=== PATIENT | female | born 2000 | race Caucasian/White ===

== ENCOUNTER 2024-05-16 09:56 | Emergency (ER) | payer BC, SELFPAY ==
[2024-05-16] VITALS (8 sets, daily range): BP systolic 107–136; BP diastolic 72–96; PULSE 61–92; RESP 18–19; TEMP 36.6–36.7; O2SAT 97–100; BMI 19.7
[2024-05-16] MEDS: 0.9 % SODIUM CHLORIDE 1000ML 1,000 ML 999 ML IV (10:13)
[2024-05-16] MEDS: ACETAMINOPHEN 500MG TAB 1000 MG PO (10:13)
[2024-05-16] MEDS: ONDANSETRON 4MG/2ML VIAL 4 MG IV (10:13)
[2024-05-16] MEDS: MORPHINE 4MG/ML SYRINGE 4 MG IV (10:13)
[2024-05-16 10:14] LABS: Microscopic, Urine URINE MICROSCOPIC (MICROSCOPIC)
[2024-05-16 10:15] LABS: Appearance,Urine CLEAR (Clear); Bilirubin,Urine Negative (Negative); Blood, Urine TRACE-I (Negative); Color,Urine YELLOW (Yellow); Glucose,Urine (UA) Negative (Negative); Ketones,Urine 2+ (Negative); Leukocyte Esterase,Urine Negative (Negative); Nitrate,Urine Negative (Negative); Protein,Urine 1+ (Negative); Specific Gravity, Urine >= 1.030 (1.005-1.030); Urobilinogen,Urine 0.2 EU/dl (0.2)
--- NOTE | 2024-05-16 10:20 | ED_ITS ---
Discharge Plan Disposition Patient Disposition: Home, Self-Care Prescriptions Prescriptions: New ondansetron 4 mg tablet,disintegrating 4 mg PO Q6H PRN (Reason: nausea and vomiting) Qty: 10 0RF promethazine 25 mg tablet 25 mg PO Q6H PRN (Reason: nausea and vomiting) Qty: 20 0RF Referrals Follow up/Referrals: Joao Brewer II, MD [Staff Physician] - See instructions Activity Restrictions/Add. Instructions Additional Instructions/Restrictions: Call your family doctor to establish care for this visit to the emergency department and schedule follow-up within 48 hours to ensure improvement. If you have any worsening of your condition or any other concerning signs or symptoms, return to the emergency department or your primary care doctor for further evaluation. Take Tylenol 1000 mg every 6 hours (4 times daily) and ibuprofen 400 mg every 6 hours (4 times daily) as needed with food and water to prevent GI upset and kidney damage. Refraining from THC use can significantly improve your symptoms. Talk to your family doctor regarding follow-up and need for repeat labs to make sure potassium returns to normal. If you are feeling nauseated or having cramping abdominal pain, take promethazine orally. If you are actively vomiting, place Zofran (ondansetron) underneath your tongue to let it dissolve. Do not take them at the same time. You can take 1 or the other every 6 hours as needed for nausea and vomiting. If you continue having symptoms, Dr. Brewer's information is here, he has a staff development manager that can further manage your symptoms. Clinical Impressions Clinical Impression: Abdominal pain, Vomiting, Acute hypokalemia Instructions Patient Instructions: DI for Acute Abdominal Pain Print Language Print Language: Divehi Discharge ED Provider: Geovanny Mcbride General Adult HPI General Chief complaint: Abdominal Pain Stated complaint: abd pain, vomiting Time Seen by Provider: 05/16/24 10:04 Mode of Arrival: Family Vehicle Source of Information: Patient and Significant Other Limitations: No Limitations Description of Symptoms (Recalled from ER Triage Doc. by RN): Pt c/o periumbilical- LLQ ABD pain that is tender and has bruising to the area that began 5 days ago. States the pain was initally dull ache and has progressed to be severe today. She has not kept anything significant down in 5 days. Reports n/v and states emesis is green stomach acid . No previous ABD surgery. LPM was 1 wk ago. Last BM was over 5 days ago. She denies any hx of constipation. History of Present Illness HPI narrative: Please note that above description of symptoms, in this electronic medical record under categorization of recalled from ER triage doctor by RN are reflective of an initial nursing assessment, however, is not reflective of my full history and physical exam that was personally taken and clarified. Consequentially, this preceding description of symptoms, which may include the patient's categorized chief complaint in the EMR, do not reflect my personal clinical impression, and the ultimate description of history of present illness and patient stated complaints should be deferred to this section of the note. Unless stated otherwise or congruent with this section of the note, additional signs, symptoms, or incongruence should be interpreted as inaccurate with my clinical impression. Related Data Previous Rx's ?Medication ?Instructions ?Recorded ondansetron 4 mg disintegrating 4 mg PO Q6H PRN nausea and 05/16/24 tablet vomiting #10 tabs promethazine 25 mg tablet 25 mg PO Q6H PRN nausea and 05/16/24 vomiting #20 tabs Allergies Allergy/AdvReac Type Severity Reaction Status Date / Time No Known Allergies Allergy Verified 05/16/24 10:11 [facility] Disclaimer: The information contained in this section may have been updated after the patient was seen, as this information can be updated by other users. Social History Smoking Status: Former smoker alcohol intake: never current occupational status: employed Travel in the last 8 weeks: None ROS Obtained: Yes All systems reviewed & no additional complaints except as documented Physical Exam General General appearance: alert Head Head exam: atraumatic and normocephalic Eye Eye exam: Present normal appearance, PERRL and EOMI ENT ENT exam: Present mucous membranes dry Neck Neck exam: Present normal inspection, full ROM and trachea midline Respiratory Respiratory exam: Absent respiratory distress, wheezes, stridor, accessory muscle use or prolonged expiratory phase Cardiovascular Cardiovascular exam: Present regular rate, normal rhythm and other (Pulses equal symmetric in upper and lower extremities) Abdominal Exam Abdominal exam: Present soft, tenderness and guarding; Absent distention, rebound, rigidity or pulsatile mass Abdominal tenderness: Present epigastrium and diffuse Comment: Mottling of periumbilical abdominal soft tissues Extremities Exam Extremities exam: Absent edema Neurological Exam Neurological exam: Present alert, oriented X3 and CN II-XII intact; Absent motor sensory deficit Skin Skin exam: Present warm and dry; Absent diaphoresis or erythema Medical Decision Making Medical Records Medical records reviewed: Yes I reviewed the patient's medical records. Screening: Per USPSTF and CDC recommendations, given the prevalence of disease in our region, it is our hospital?s policy to screen for HIV and viral Hepatitis for all patients aged 18 and over and those with ongoing risk factors. Danny Inquiry Pt receiving controlled substance: No Danny was queried for this patient: No Vital Signs: 05/16/24 09:57 05/16/24 11:00 05/16/24 11:31 Temperature 98.1 F Temperature Source Oral Pulse Rate 65 65 Pulse Rate [Right] 92 H Respiratory Rate 19 Blood Pressure 128/93 H 116/84 Blood Pressure [Right Arm] 136/96 H Blood Pressure Mean [Right Arm] 109 Blood Pressure Source [Right Arm] Automatic Cuff 02 Sat by Pulse Oximetry 99 100 97 Oxygen Delivery Method Room Air 05/16/24 12:00 05/16/24 12:32 05/16/24 12:48 Temperature Temperature Source Pulse Rate 74 70 70 Pulse Rate [Right] Respiratory Rate Blood Pressure 107/72 L 113/94 H 113/94 H Blood Pressure [Right Arm] Blood Pressure Mean [Right Arm] Blood Pressure Source [Right Arm] 02 Sat by Pulse Oximetry 97 98 98 Oxygen Delivery Method Room Air 05/16/24 13:00 Temperature Temperature Source Pulse Rate 61 Pulse Rate [Right] Respiratory Rate Blood Pressure 125/92 H Blood Pressure [Right Arm] Blood Pressure Mean [Right Arm] Blood Pressure Source [Right Arm] 02 Sat by Pulse Oximetry 98 Oxygen Delivery Method Lab Data Lab Results 05/16/24 10:03: Urine Color Yellow, Urine Appearance Clear, Urine pH 6.0, Ur Specific [place] >= 1.030, Urine Protein 1+ A, Urine Glucose (UA) Negative, Urine Ketones 2+, Urine Blood Trace-i, Urine Nitrate Negative, Urine Bilirubin Negative, Urine Urobilinogen 0.2, Ur Leukocyte Esterase Negative, Urine RBC Occasional, Urine WBC Occasional, Ur Squamous Epith Cells 3-5, Urine Bacteria 2+, Urine Mucus 2+, Urine Opiates Screen Negative, Urine Methadone Screen Negative, Ur Barbituates Screen Negative, Ur Phencyclidine Scrn Negative, Ur Amphetamines Screen Negative, U Benzodiazepines Scrn Negative, Urine Cocaine Screen Negative, U Marijuana (THC) Screen Positive H 05/16/24 10:08: WBC 11.5 H, RBC 5.63 H, Hgb 17.4 H, Hct 47.9 H, MCV 85.1, MCH 31.0, MCHC 36.4 H, RDW 13.3, Plt Count 440 H, MPV 9.1, Neut % (Auto) 67.8, Lymph % (Auto) 23.2, [place] % (Auto) 8.4, Eos % (Auto) 0.2, Baso % (Auto) 0.5, Neut # (Auto) 7.8, Lymph # (Auto) 2.7, [place] # (Auto) 1.0, Eos # (Auto) 0.0, Baso # (Auto) 0.1, Sodium 128 L, Potassium 2.9 L*, Chloride 94 L, Carbon Dioxide 20 L, Anion Gap 16.9 H, BUN 17, Creatinine 0.90, Estimated Creat Clear 76, Estimated GFR 78, Est GFR ( Amer) 95, Glucose 85, Calcium 9.7, Total Bilirubin 1.9 H, AST 33, ALT 27, Alkaline Phosphatase 68, Total Protein 8.4 H, Albumin 5.3 H, Globulin 3.1, Albumin/Globulin Ratio 1.7, Lipase 99, HCG, Quant < 2, HIV 1&2 Antibody Rapid Nonreactive 05/16/24 10:08 05/16/24 10:08 Orders (Tests/Meds): ED MEDICATIONS Discontinued Medications Generic Name Dose Route Start Last Admin Trade Name Wilberq PRN Reason Stop Dose Admin Acetaminophen 1,000 mg 05/16/24 10:13 05/16/24 10:13 Acetaminophen 500mg Tab PO 05/16/24 10:14 1,000 mg ONCE ONE Administration Sodium Chloride 1,000 mls @ 999 mls/hr 05/16/24 10:08 05/16/24 10:13 Sod Chlor 0.9% 1000ml Bag IV 05/16/24 11:08 999 mls/hr .Q1H1M ONE Administration Potassium Chloride/Water 100 mls @ 100 mls/hr 05/16/24 10:40 05/16/24 11:49 Potassium Chloride 10meq/100ml Ivpb IV 05/16/24 12:39 100 mls/hr Q1H KEAGAN Administration Iopamidol 75 ml 05/16/24 12:28 05/16/24 12:28 Iopamidol-370 (76%);100ml Bottle IV 05/16/24 12:29 75 ml ONCE ONE Administration Ketorolac Tromethamine 15 mg 05/16/24 10:58 05/16/24 11:49 Ketorolac 30mg/Ml Vial IV 05/16/24 10:59 15 mg ONCE ONE Administration Morphine Sulfate 4 mg 05/16/24 10:13 05/16/24 10:13 Morphine 4mg/Ml Syringe IV 05/16/24 10:14 4 mg ONCE ONE Administration Ondansetron HCl 4 mg 05/16/24 10:08 05/16/24 10:13 Ondansetron 4mg/2ml Vial IV 05/16/24 10:09 4 mg ONCE ONE Administration Potassium Chloride 60 meq 05/16/24 10:40 05/16/24 11:49 Potassium Chloride 20meq Tab PO 05/16/24 10:41 60 meq ONCE ONE Administration Sodium Chloride 10 ml 05/16/24 12:28 05/16/24 12:28 Sodium Chloride 0.9% 10ml Syr (Rad Only) IV 05/16/24 12:29 10 ml ONCE ONE Administration ORDERS Category Date Time Status CT abdomen pelvis w con Stat Cat Scan 05/16/24 11:58 Completed CBC w/Auto Diff [Complete Blood Count Auto Diff] Stat Lab 05/16/24 10:08 Completed CMP [Comprehensive Metabolic Panel] Stat Lab 05/16/24 10:08 Completed HCG,Quantitative Stat Lab 05/16/24 10:08 Completed HIV (1&2) Antibody Rapid Stat Lab 05/16/24 10:08 Completed Hep C Ab with Reflex to RNA Stat Lab 05/16/24 10:08 Received Lipase Stat Lab 05/16/24 10:08 Completed UA [Urinalysis and Microscopic] Stat Lab 05/16/24 10:03 Completed UDS [Drug Screen,Urine] Stat Lab 05/16/24 10:03 Completed Urine Culture Stat Micro 05/16/24 10:03 Received Medical Decision Narrative: 24-year-old female no relevant medical history presenting with abdominal pain. Patient states that she has been vomiting for the past week or so on and off. Made worse with attempting oral or solid p.o. intake. Nonbloody, nonbilious vomit, associated with a couple episodes of loose stools, but no overt diarrhea. Patient states that for about 4 or 5 days she has had abdominal pain that is primarily epigastric, does not radiate, is now severe in nature and has been crescendo. Has not taken anything for the pain. No fevers or chills, chest pain, shortness of breath, other sick contacts, recent travel, or any other relevant history or concerns. Visitor in the room corroborating story and states that she has had very minimal meaningful p.o. intake for about 5 days stating that he is constantly pushing chicken broth and clears just to try to keep her hydrated. History was obtained via conversation with patient and visitor. On arrival, patient hemodynamically stable, alert, oriented x4, appropriate, GCS 15, moving all extremities spontaneously, pupils equal and reactive to light. Full physical exam performed and significant for fatigued appearing female who is in no acute distress. Speaking in full sentences. Smells of marijuana. Normotensive, nontachycardic. She is afebrile. Cardiopulmonary exam normal. Patient's abdomen is soft, nondistended, but mildly diffusely tender, but primarily tender in epigastrium with voluntary guarding. She also has what appears to be mottling of the skin and periumbilical tissues. No flank bruising, tenderness, or overlying skin changes. Differential includes cannabis hyperemesis, PUD, gastritis, enteritis, gastroenteritis, pancreatitis, SBO, colitis, diverticulitis, nephrolithiasis, UTI, , cholecystitis, choledocholithiasis, appendicitis, hepatitis, torsion, aortic pathology, mesenteric ischemia among others. Patient placed on continuous cardiac monitoring and continuous pulse ox with initial blood pressure 136/90, heart rate 92, saturation 99% on room air. Patient was given fluids, oral and IV potassium, Zofran, Toradol for symptomatic management and correction of underlying abnormalities. Workup independently interpreted and significant for hemoconcentration with hemoglobin 17.4, elevated white cell count 11.5, platelets elevated at 440. Patient's chemistry with mild hyponatremia 128, hypokalemia 2.9 and anion gap of 16.9 likely secondary to mild lactic acidosis. Lipase negative, hCG negative. Patient's urinalysis unremarkable. UDS positive for THC. On reevaluation, patient states she is still in pain, however she is laying on her side and sleeping comfortably needing to be woken up. On independent interpretation of imaging, no acute intra-abdominal abnormality. See radiology read for full review of final results. On reevaluation, patient still complaining of mild pain, able to tolerate p.o. intake and nausea significantly improved. Further conversation reveals that patient is intermittently smoking THC, I feel this is likely understated given scent in the room and patient's symptoms. Given patient presentation, workup, history, this most likely represents cannabis hyperemesis syndrome versus gastritis. Reassurance was given, antiemetics sent to pharmacy. It was recommended the patient follow-up with her family doctor regarding this visit to the emergency department to have potassium reevaluated. Was also recommended the patient stop smoking THC in order to improve symptoms. Voiced her understanding. because patient at baseline without signs or symptoms of clinical decompensation, deemed appropriate for discharge. Results were relayed to patient who voiced understanding and were agreeable to outpatient management and follow up. I discussed my clinical impression with patient and answered all questions. At this time, the evidence for any other entities in the differential is insufficient to warrant any further testing or ED observation. This was explained as well. Advisory was given that persistent or worsening symptoms require further evaluation. I confirmed the understanding of this discussion. Immigration Patrol Inspector disclaimer Much of this encounter note is an electronic specialist employee labor relations spoken language to printed text. Electronic specialist employee labor relations of the spoken language may permit errors. Although I have reviewed the note, some errors may still exist. Critical Care Critical Care Time Critical Care Time: No
[2024-05-16 10:35] LABS: Alanine Aminotransferase 27 U/L (12-78); Albumin Level 5.3 g/dl (3.5-5.0); Albumin/Globulin Ratio 1.7 (1.1-1.8); Alkaline Phosphatase 68 U/L (38-126); Anion Gap 16.9 mEq/L (5-15); Aspartate Amino Transferase 33 U/L (14-36); Bilirubin,Total 1.9 mg/dl (0.2-1.3); Blood Urea Nitrogen 17 mg/dl (7-17); Calcium 9.7 mg/dl (8.4-10.2); Carbon Dioxide 20 mmol/L (22.0-30.0); Chloride 94 mmol/L (98-107); Creatinine Clearance Estimated 76 mL/min (50-200); Estimated Glomerular Filt Rate 78 ml/min (>60); GFR (African American) 95 ML/MIN (>60); Globulin 3.1 g/dL (1.3-3.2); Glucose 85 mg/dl (74-100); Lipase 99 U/L (23-300); Sodium 128 mmol/L (136-145); Total Protein,Serum 8.4 g/dl (6.3-8.2)
--- NOTE | 2024-05-16 10:40 | PC.NURSE ---
critical k+ 2.9, pt name and r/v. dr claros notified
[2024-05-16 10:41] LABS: Potassium 2.9 mmoL/L (3.5-5.1)
[2024-05-16] MEDS: KCl 10mEq/100ml 100 ML 100 MEQ IV ×2 (10:47→11:49)
[2024-05-16 10:52] LABS: HCG,Quantitative < 2 mIU/ml (0-5.42)
--- NOTE | 2024-05-16 11:07 | PC.NURSE ---
Potassium began at this time. Call light within reach and pt educated to call staff if IV begins to be uncomfortable.
[2024-05-16 11:16] LABS: RBC,Urine Occasional #/hpf (0-3); WBC,Urine Occasional #/hpf (0-3)
[2024-05-16 11:17] LABS: Bacteria,Urine 2+ /lpf; Mucus,Urine 2+ /lpf
[2024-05-16 11:21] LABS: Basophils # 0.1 K/mm3 (0-0.2); Basophils % 0.5 % (0.1-2.0); Eosinophils % 0.2 % (0.1-12.0); Hematocrit 47.9 % (37.0-47.0); Hemoglobin 17.4 g/dL (12.2-16.2); Lymphocytes # 2.7 K/mm3 (0.7-4.5); Lymphocytes % 23.2 % (10-50); Mean Corpuscular HGB Conc 36.4 g/dL (31.8-35.4); Mean Corpuscular Volume 85.1 fl (81-99); Mean Platelet Volume 9.1 fl (7.4-10.4); Monocytes % 8.4 % (1.7-9.3); Neutrophils # 7.8 K/mm3 (1.8-7.8); Neutrophils % 67.8 % (37.0-80.0); Platelet Count 440 K/mm3 (142-424); Red Blood Count 5.63 M/mm3 (4.20-5.40); Red Cell Distribution Width 13.3 % (11.5-17.5); White Blood Count 11.5 K/mm3 (4.8-10.8)
[2024-05-16] MEDS: KETOROLAC 30MG/ML VIAL 15 MG IV (11:49)
[2024-05-16] MEDS: POTASSIUM CHLORIDE 20MEQ TAB 60 MEQ PO (11:49)
--- NOTE | 2024-05-16 11:58 | CT_ITS ---
FINAL REPORT CLINICAL HISTORY: epigastreic pain, severe COMPARISON: None FINDINGS: CT OF THE ABDOMEN AND PELVIS WITH CONTRAST Axial CT images of the abdomen and pelvis were obtained after the administration of IV contrast. Coronal reformatted images were also obtained and reviewed. This study was performed with techniques to keep radiation doses as low as reasonably achievable (ALARA). Individualized dose reduction techniques using automated exposure control or adjustment of mA and/or kV according to the patient's size were employed. Abdomen: The lung bases are clear. The heart is normal in size. The liver has an unremarkable appearance, without evidence of mass or biliary ductal dilatation. The spleen is unremarkable. No adrenal mass is present. The pancreas has an unremarkable appearance. The kidneys are normal, without evidence of mass or hydronephrosis. The aorta is normal in caliber. There is no free fluid or adenopathy. No mass or abnormal fluid collection is seen. Pelvis: The appendix is partially visualized and appears normal where seen. The urinary bladder is unremarkable. No inflammatory process is seen. There is no evidence of mass or adenopathy. There is no evidence of bowel obstruction. IMPRESSION: No evidence of acute intra-abdominal process. No mass, fluid collection, or localized inflammatory process. Reviewed, Interpreted and Dictated by Caesar Key III, MD Transcribed by Mary Reynaga Authenticated and [facility]
--- NOTE | 2024-05-16 12:25 | PC.NURSE ---
PT TO CT
[2024-05-16] MEDS: SODIUM CHLORIDE 0.9% 10ML SYR (RAD ONLY) 10 ML IV (12:28)
[2024-05-16] MEDS: IOPAMIDOL-370 (76%);100ML BOTTLE 75 ML IV (12:28)
[2024-05-16 12:31] LABS: HIV (1&2) Antibody Rapid NONREACTIVE (NONREACTIVE)
[2024-05-16 12:53] LABS: Barbiturates Screen,Urine Negative ng/ml (<200)
[2024-05-16 12:54] LABS: Benzodiazepines Screen,Urine Negative ng/ml (<200)
[2024-05-16 12:55] LABS: Amphetamine/Metha Screen,Urine Negative ng/ml (<1000); Methadone Screen,Urine Negative ng/ml (<300)
[2024-05-16 12:56] LABS: Cannabinoid Screen,Urine Positive ng/ml (<50)
[2024-05-16 12:57] LABS: Cocaine Screen,Urine Negative ng/ml (<300); Opiate Screen,Urine Negative ng/ml (<300)
[2024-05-16 12:58] LABS: Phencyclidine Screen,Urine Negative ng/ml (<25)
[2024-05-16] MEDS: PROMETHAZINE HCL 25MG/ML 1ML VIAL 12.5 MG IV (14:44)
[2024-05-16] MEDS: SODIUM CHLORIDE 0.9% 25ML BAG 25 ML IV (14:44)
--- NOTE | 2024-05-16 14:50 | PC.NURSE ---
Pt is nauseated and dry heaving after intake of some water. Dr. Mcbride notified and ordered phenergan 12.5mg IV
--- NOTE | 2024-05-16 15:33 | PC.NURSE ---
pt is feeling slightly improved with n/v after phenergan. States he ride will not be here until 1700 d/t work
[2024-05-17 10:24] LABS: HCV Ab Non Reactive (Non Reactive)
== END 2024-05-16 16:50 | disposition home or self-care (01) ==
PROVIDERS: Emergency Provider Emergency Medicine
DX: E87.6 Hypokalemia (principal); R10.32 Left lower quadrant pain; R11.2 Nausea with vomiting, unspecified
CPT/HCPCS: 74177; 80053; 80307; 81001; 83690; 84702; 85025; 86803; 87086; 87389; 96361; 96374; 96375; 99285; J1885; J2270; J2405; J2550; J3480; J7030; Q9967